=== PATIENT | female | born 1960 | race Caucasian/White ===

== ENCOUNTER 2019-04-27 12:56 | Emergency (ER) | payer BC, OTHER ==
[~2019-04-27] VITALS: Ht 162.6 cm; Wt 87.5 kg
[2019-04-27 13:02] VITALS: BP_SYST 199
--- NOTE | 2019-04-27 13:05 | NUR ---
Patient to ER bed 08 to gown for evaluation. Side rails up.
--- NOTE | 2019-04-27 13:15 | NUR ---
MEGAN HARMON examining patient.
--- NOTE | 2019-04-27 13:20 | NUR ---
PATIENT CAME IN FROM PCP COMPLAINING OF HIGH BLOOD PRESSURE. PATIENT STATES SHE HAS NO HISTORY OF HIGH BLOOD PRESSURE. PATIENT STATES SHE EXERCISES BUT NOT MUCH LATELY. PATIENT STATES SHE HAS NO PAIN OR SOB. PATIENT ALERT AND ORIENTED X4. PATIENT NOT COMPLAINING OF NAUSEA OR VOMITING.
[2019-04-27 14:13] LABS: HEMATOCRIT 39.5 % (36-48); HEMOGLOBIN 13.4 g/dL (12.0-16.0); MEAN CORPUSCULAR HEMOGLOBIN 29 pg (27-31); MEAN CORPUSCULAR HGB CONC 34 % (32-36); MEAN CORPUSCULAR VOLUME 86 fL (79.0-98.0); RED BLOOD CELL COUNT(AUTO) 4.61 MIL/uL (4.2-6.2)
[2019-04-27 14:14] LABS: BASOPHILS % (AUTO) 0.5 % (0.0-2.0); EOSINOPHILS # (AUTO) 0.2 K/uL (0.0-0.4); EOSINOPHILS % (AUTO) 3.5 % (0.0-4.0); LYMPHOCYTES # (AUTO) 2.5 K/uL (1.0-5.5); LYMPHOCYTES % (AUTO) 35.5 % (20.5-51.5); MONOCYTES # (AUTO) 0.6 K/uL (0.0-1.0); MONOCYTES % (AUTO) 7.9 % (1.7-9.3); NEUTROPHILS # (AUTO) 3.7 K/uL (1.8-7.7); NEUTROPHILS % (AUTO) 52.6 % (40.0-70.0); PLATELET COUNT (AUTO) 282 K/uL (130-430); RED CELL DISTRIBUTION WIDTH 13.4 % (9.0-15.0)
--- NOTE | 2019-04-27 14:15 | NUR ---
Pt A&Ox4, VSS, respirations even and unlabored, cap refill <3, denies pain
[2019-04-27 14:45] LABS: CALCIUM 9.4 mg/dL (8.4-11.0); POTASSIUM 3.3 mmol/L (3.5-5.1)
[2019-04-27 14:46] LABS: CREATININE 0.58 mg/dL (0.55-1.30)
[2019-04-27 14:53] LABS: BILIRUBIN,URINE NEGATIVE (NEGATIVE); BLOOD, URINE NEGATIVE (NEGATIVE); CLARITY/URINE CLEAR (CLEAR); COLOR,URINE YELLOW (YELLOW); GLUCOSE,URINE NEGATIVE (NEGATIVE); KETONES,URINE NEGATIVE (NEGATIVE); LEUKOCYTE ESTERASE ,URINE NEGATIVE (NEGATIVE); NITRITE, URINE NEGATIVE (NEGATIVE); PH,URINE 7.5 (5.0-8.0); PROTEIN URINE NEGATIVE (NEGATIVE); UROBILINOGEN,URINE 0.2 (0.2-1.0)
[2019-04-27] MEDS ORDERED: POTASSIUM CHLORIDE 10 MEQ TAB.PRT.SR PO ONE (15:00)
[2019-04-27 15:18] VITALS: BP_SYST 160
--- NOTE | 2019-04-27 15:33 | NUR ---
Patient given written and verbal discharge instructions and verbalizes understanding. ER MD discussed with patient the results and treatment provided. Patient in stable condition. ID arm band removed. No Rx given. Patient educated on pain management and to follow up with PMD. Pain Scale 0/10. Opportunity for questions provided and answered. Medication side effect fact sheet provided.
== END 2019-04-27 15:33 | disposition home or self-care (01) ==
LOC: SED 12:56
DX: R03.0 Elevated blood-pressure reading, without diagnosis of hypertension (principal); Z90.710 Acquired absence of both cervix and uterus; Z88.5 Allergy status to narcotic agent
CPT/HCPCS: 36415; 80048; 81003; 85025; 93005; 99284